=== PATIENT | male | born 1995 | race Caucasian/White ===

== ENCOUNTER 2016-11-05 01:46 | Emergency (ER) | payer BC ==
[~2016-11-05] VITALS: Ht 177.8 cm; Wt 84.9 kg
[2016-11-05 01:50] VITALS: TEMP 36.7; Ht 177.8 cm; Wt 84.9 kg
[2016-11-05] MEDS ORDERED: SODIUM CHLORIDE 0.9% 1000ML 1,000 ML IV STA (02:32)
[2016-11-05] MEDS ORDERED: ACET-1175 PO (02:40)
[2016-11-05 03:54] LABS: BASO % 0.1 %; BASO ABS # 0.01 K/uL (0-0.2); COMPLETE YES; EOS % 7.6 %; HEMATOCRIT 46.7 % (42-52); IG% 0.1 %; LYMPH % 31.1 %; LYMPH ABS # 2.29 K/uL (1.2-3.4); MEAN CELL VOLUME 87.3 fL (80-100); MEAN CORPUSCULAR HEMOGLOBIN 31.4 pg (25-34); MEAN PLATELET VOLUME 9.9 fL (7.4-10.4); MONO % 9.1 %; PLATELET COUNT 208 K/uL (130-400); RED BLOOD COUNT 5.35 M/uL (4.7-6.1); WHITE BLOOD COUNT 7.37 K/uL (4.8-10.8)
[2016-11-05 03:55] LABS: URINE APPEARANCE CLEAR (CLEAR); URINE BILIRUBIN NEG (NEG); URINE COLOR YELLOW; URINE NITRITE NEG (NEG); URINE SPECIFIC GRAVITY 1.023 (1.000-1.030); UROBILINOGEN NEG (NEG); ZZUR CULT IF INDIC CLEAN CATCH NO
[2016-11-05 03:59] LABS: MANUAL MICROSCOPIC REQUIRED? NO; REVIEW REQ? NO
[2016-11-05 04:07] LABS: INR 1.1 (0.9-1.1); PROTHROMBIN TIME (PATIENT) 11.8 SECONDS (9.0-12.0)
[2016-11-05 04:13] LABS: BUN/CREATININE RATIO 11.5 (10-20); CALCIUM 9.4 mg/dl (8.5-10.1); CREATININE 1.2 mg/dl (0.60-1.40); MAGNESIUM 2.1 mg/dl (1.8-2.4); POTASSIUM 3.7 mmol/L (3.5-5.1)
[2016-11-05 04:24] LABS: ALB/GLOB RATIO 1.2 (0.9-2); THYROID STIMULATING HORMONE 1.88 uIu/ml (0.300-4.500)
[2016-11-05 04:26] LABS: BENZODIAZEPINE, URINE NEG (NEG); COCAINE,URINE NEG (NEG); PHENCYCLIDINE, URINE NEG (NEG)
[2016-11-05] MEDS ORDERED: AMOXICIL/CLAVU 875MG HOME PACK PO ONE (05:45)
[2016-11-05] MEDS ORDERED: AMOX875T PO (05:46)
[2016-11-05] MEDS ORDERED: PANT40TA PO (05:46)
[2016-11-05] MEDS ORDERED: PRED50TA PO (05:46)
--- NOTE | 2016-11-05 05:47 | EMERGENCY ROOM VISIT NOTE ---
History First contact with patient: 02:08 Chief Complaint: NAUSEA Stated Complaint: HEADACHE / STOMACH Nursing Triage Summary: c/o intermittent nausea, abdominal pain, loss of appetite & depression. Sx started 4-5 weeks ago and was seen by PCP without any findings. At that time the patient stopped taking a testosterone enhancing supplement that was possibly the cause. No change in sx since then. History of Present Illness The patient is a 21 year old male who presents to the Emergency Department by private vehicle for evaluation of his ongoing symptoms of nausea as well as occasional abdominal pain. Patient reports that upon returning home from [place], he has experienced "mild depression" with occasional fluctuations in a motion as well as crying and worrying over small things. He reports he has had occasional nausea as well as vomiting approximately every other day. He denies any recent falls or head trauma. Today he complains of a headache. The patient has been using omeprazole the past 3 weeks with minimal relief of symptoms. He does admit to heavy drinking over spring, but denies any other drug or substance use. He did notice black stools 2 days ago. Mother does report to provide the patient Pepto-Bismol for his symptoms. He denies any yuri blood in his stool. He has not been evaluated by his primary care provider to this point. He admits to using heavy doses of ibuprofen on an empty stomach while on spring as well. He rates his current discomfort as a 2/10. She denies any fevers, chills, recent illness, blurry vision, no vision, slurred speech, facial droop, unilateral weakness/numbness, chest pain, or significant abdominal discomfort. Patient also reports using a testosterone supplement for approximately 6 weeks which has been stopped over the last few weeks as well. Review of Systems A complete 10-point Review of Systems was discussed with the patient, with pertinent positives and negatives listed in the History of Present Illness. All remaining Review of Systems questions can be considered negative unless otherwise specified. Social History Smoking Status: Never Smoker Smokeless Tobacco Use: No Alcohol Use: occasionally Drug Use: none Marital Status: single Housing Status: lives with family Occupation Status: student Current/Historical Medications Scheduled Amoxicillin & Pot Clavulanate (Augmentin 875-125 mg), 875 MG PO BID Pantoprazole (Protonix), 40 MG PO DAILY Prednisone (Prednisone), 50 MG PO DAILY Scheduled PRN Acetaminophen (Tylenol), 650 MG PO Q4 PRN for Pain Allergies Coded Allergies: No Known Allergies (Unverified , 11/05/16) Physical Exam Vital Signs Date Time Temp Pulse Resp B/P Pulse Ox O2 Delivery O2 Flow Rate FiO2 11/05/16 06:00 55 18 134/63 97 Room Air 11/05/16 04:29 48 18 123/68 98 Room Air 11/05/16 01:50 36.7 57 20 122/77 97 Room Air Pain Rating (0-10): 2 Physical Exam VITAL SIGNS - Vital signs and nursing notes were reviewed. GENERAL - 21-year-old male appearing his stated age who is in no acute distress. Communicates well with provider and answers questions appropriately. SKIN - Without rashes. HEAD - NC/AT. EYES - PERRL with EOMI bilaterally. Sclera anicteric. Palpebral conjunctiva pink and moist with no injection noted. EARS - No deformities of external structures noted on gross examination bilaterally. No pain elicited with palpation of the tragus bilaterally. External auditory canals without discharge or otorrhea. Tympanic membranes pearly prakash without retraction or bulging. No fluid or purulent material visualized behind the TM. Handle of malleus, umbo, cone of light, pars tensa/ flaccid all easily visualized. NOSE - Midline and without cyanosis. No epistaxis or purulent drainage noted. Septum midline without deviation or septal hematoma noted. MOUTH/OROPHARYNX - Without perioral cyanosis. Buccal mucosa pink and moist and without leukoplakia. Tongue midline with equal elevation of palate bilaterally. No tonsillar hypertrophy, erythema, or exudates noted. Good dentition noted. NECK - Neck with FROM. Supple to palpation. No lymphadenopathy noted. No nuchal rigidity. LUNGS - Chest wall symmetric without accessory muscle use, intercostals retractions, or central cyanosis. Normal vesicular breath sounds CTA B/L. No wheezes, rales, or rhonchi appreciated. CARDIAC - RRR with S1/S2. No murmur, rubs, or gallops appreciated. ABDOMEN - Abdominal contour flat without pulsations or visible masses. BS normoactive all four quadrants. No tenderness, palpable masses, hepatosplenomegaly, or ascites noted. RECTAL - No rectal fissures. No skin tags appreciated. No active bleeding. A sterile, water-soluble lubricant was applied to the examiner's finger prior to internal exam. No rectal vault tenderness. No rectal masses. No fecal impaction. Stool Guaiac Test: Hemoccult NEGATIVE. EXTREMITIES - No clubbing or peripheral cyanosis. No pretibial edema present. +3 /5 radial, posterior tibial, and dorsalis pedis pulses palpated throughout. +5/ 5 strength noted in UE/LE bilaterally. NEUROLOGIC - Cranial nerves II through XII grossly intact. Sensory intact to light touch throughout. Patellar reflexes +2/4. PSYCH - A&Ox3 and cooperates fully with examiner. Pt is very pleasant and interacts well with examiner. Medical Decision & Procedures ER Provider Diagnostic Interpretation: Obstruction series was obtained and reviewed by myself. No acute obstructions or other findings noted per my interpretation. Radiologist's impression unavailable at the time of dictation. Radiological imaging and reports were reviewed by myself. Radiologist's Interpretation per [facility] as follows: CT HEAD: No acute intracranial hemorrhage. No evidence of intracranial mass, extra-axial fluid collection, or hydrocephalus. Complete opacification right frontal sinus, partial opacification bilateral ethmoid air cells, and moderate mucosal thickening of right sphenoid sinus. Laboratory Results 11/05/16 03:30 Red Blood Count 5.35, Mean Corpuscular Volume 87.3, Mean Corpuscular Hemoglobin 31.4, Mean Corpuscular Hemoglobin Concent 36.0, Mean Platelet Volume 9.9, Neutrophils (%) (Auto) 52.0, Lymphocytes (%) (Auto) 31.1, Monocytes (%) (Auto) 9.1, Eosinophils (%) (Auto) 7.6, Basophils (%) (Auto) 0.1, Neutrophils # (Auto) 3.83, Lymphocytes # (Auto) 2.29, Monocytes # (Auto) 0.67, Eosinophils # (Auto) 0.56, Basophils # (Auto) 0.01 11/05/16 03:30 Test 11/05/16 03:30 11/05/16 03:45 White Blood Count 7.37 K/uL (4.8-10.8) Red Blood Count 5.35 M/uL (4.7-6.1) Hemoglobin 16.8 g/dL (14.0-18.0) Hematocrit 46.7 % (42-52) Mean Corpuscular Volume 87.3 fL (80-100) Mean Corpuscular Hemoglobin 31.4 pg (25-34) Mean Corpuscular Hemoglobin Concent 36.0 g/dl (32-36) Platelet Count 208 K/uL (130-400) Mean Platelet Volume 9.9 fL (7.4-10.4) Neutrophils (%) (Auto) 52.0 % Lymphocytes (%) (Auto) 31.1 % Monocytes (%) (Auto) 9.1 % Eosinophils (%) (Auto) 7.6 % Basophils (%) (Auto) 0.1 % Neutrophils # (Auto) 3.83 K/uL (1.4-6.5) Lymphocytes # (Auto) 2.29 K/uL (1.2-3.4) Monocytes # (Auto) 0.67 K/uL (0.11-0.59) Eosinophils # (Auto) 0.56 K/uL (0-0.5) Basophils # (Auto) 0.01 K/uL (0-0.2) RDW Standard Deviation 40.1 fL (36.4-46.3) RDW Coefficient of Variation 12.5 % (11.5-14.5) Immature Granulocyte % (Auto) 0.1 % Immature Granulocyte # (Auto) 0.01 K/uL (0.00-0.02) Prothrombin Time 11.8 SECONDS (9.0-12.0) Prothromb Time International Ratio 1.1 (0.9-1.1) Activated Partial Thromboplast Time 25.5 SECONDS (21.0-31.0) Partial Thromboplastin Ratio 1.0 Anion Gap 6.0 mmol/L (3-11) Est Creatinine Clear Calc Drug Dose 100.5 ml/min Estimated GFR () 99.6 Estimated GFR (Non- 85.9 BUN/Creatinine Ratio 11.5 (10-20) Calcium Level 9.4 mg/dl (8.5-10.1) Magnesium Level 2.1 mg/dl (1.8-2.4) Total Bilirubin 0.7 mg/dl (0.2-1) Aspartate Amino Transf (AST/SGOT) 13 U/L (15-37) Alanine Aminotransferase (ALT/SGPT) 28 U/L (12-78) Alkaline Phosphatase 85 U/L (45-117) Total Protein 7.9 gm/dl (6.4-8.2) Albumin 4.3 gm/dl (3.4-5.0) Globulin 3.6 gm/dl (2.5-4.0) Albumin/Globulin Ratio 1.2 (0.9-2) Lipase 124 U/L (73-393) Thyroid Stimulating Hormone (TSH) 1.880 uIu/ml (0.300-4.500) Urine Color YELLOW Urine Appearance CLEAR (CLEAR) Urine pH 5.0 (4.5-7.5) Urine Specific Cory 1.023 (1.000-1.030) Urine Protein NEG (NEG) Urine Glucose (UA) NEG (NEG) Urine Ketones NEG (NEG) Urine Occult Blood NEG (NEG) Urine Nitrite NEG (NEG) Urine Bilirubin NEG (NEG) Urine Urobilinogen NEG (NEG) Urine Leukocyte Esterase NEG (NEG) Urine Opiates Screen NEG (NEG) Urine Methadone, Qualitative NEG (NEG) Urine Barbiturates NEG (NEG) Urine Phencyclidine (PCP) Level NEG (NEG) Ur Amphetamine/Methamphetamine NEG (NEG) MDMA (Ecstasy) Screen NEG (NEG) Urine Benzodiazepines Screen NEG (NEG) Urine Cocaine Metabolite NEG (NEG) Urine Marijuana (THC) NEG (NEG) Medications Administered Medications (Trade) Dose Ordered Sig/Charla Route Start Time Stop Time Status Last Admin Dose Admin Sodium Chloride (Nss 1000ml) 1,000 ml @ 999 mls/hr Q1H1M STAT IV 11/05/16 02:32 11/05/16 03:32 DC 11/05/16 04:23 999 MLS/HR Amoxicillin/ Clavulanate Potassium (Augmentin 875MG Home Pack) 1 homepack UD ONCE PO 11/05/16 05:45 11/05/16 05:46 DC 11/05/16 06:01 1 HOMEPACK Prednisone (PredniSONE TAB) 60 mg NOW STAT PO 11/05/16 05:40 11/05/16 05:41 DC 11/05/16 06:01 60 MG ED Course Patient was seen and evaluated by myself. Labs were drawn, saline lock in place. The patient was hydrated with a 1000 mL normal saline bolus. He declines anything for pain. CT the head and obstruction series were obtained. Laboratory results demonstrate no acute leukocytosis, worrisome anemia, or bandemia. The patient has no significant electrolyte abnormalities. Drug screen was negative. CT the head is unremarkable. Obstruction series was unremarkable. Stool was Hemoccult negative. Case was reviewed with my attending physician who agrees the diagnostic approach and treatment plan. Laboratory results and imaging studies were reviewed with the patient and family who acknowledges understanding. The patient was placed on Augmentin as well as prednisone for his concern for sinus disease. He is a symptomatic at this point, however. Patient will follow-up with his primary care provider later this week for recheck. He will return to the emergency department in the setting of any changing or worsening symptoms. Patient discharged home afebrile and in good condition. Medical Decision Given the patient's presentation and stated complaints, I did elect to perform the above-mentioned workup. The patient presents today with complaints of emotional lability as well as a headache and ongoing symptoms of nausea. There was concern for black stools a few days ago. Stools Hemoccult negative and i suspect this is likely related to Pepto-Bismol use. Neurologically, the patient 's exam is completely unremarkable. He has no focal neurological deficits. CT the head was unremarkable except for some sinus disease issues. He has no meningeal findings. He has no fever. CT demonstrates no masses or lesions to the brain which would result the patient's ongoing symptoms. I suspect the patient's emotional lability and ongoing symptoms could be related to his recent use of supplemental testosterone hormone with recent discontinuation of this. His workup is essentially unremarkable from an emergency standpoint this point. He was placed on Augmentin as well as prednisone for his sinusitis disease. He'll follow up closely with his primary care provider this week in follow-up. He will return for changing/worsening symptoms. Patient discharged home afebrile and in good condition. In the evaluation and treatment of this patient, the following differential diagnoses were considered: Migraine Headache, Intracranial Hemorrhage, Subdural Hematoma, Subarachnoid Hemorrhage, Cerebral Aneurysm, Temporal/Giant Cell Arteritis, Tension Headache, Meningitis, Encephalitis, or Hydrocephalus. Impression Primary Impression: Nausea & vomiting Additional Impressions: Emotional lability Headache Sinusitis Departure Information Dispostion Home / Self-Care Condition GOOD Prescriptions Amoxicillin & Pot Clavulanate (Augmentin 875-125 mg) 1 Tab Tab 875 MG PO BID for 14 Days, #28 TAB Prov: Frankie Urbina, PAHuiC 11/05/16 Pantoprazole (Protonix) 40 Mg Tab 40 MG PO DAILY for 30 Days, #30 TAB Prov: Frankie Urbina PA-C 11/05/16 Prednisone (Prednisone) 50 Mg Tab 50 MG PO DAILY for 4 Days, #4 TAB Prov: Frankie Urbina PA-C 11/05/16 Referrals Kimmie Guzman M.D. (PCP) Patient Instructions My [facility] Additional Instructions You've been seen in the emergency department today for your ongoing nausea and vomiting as well as changes in a motion and sinusitis. You were prescribed Augmentin to be taken as prescribed. This is an antibiotic. All antibiotics have the potential to cause diarrhea. Stop this medication and contact a medical provider if you were to develop any significant adverse side effects including: wheezing, shortness of breath, passing out, vomiting, or a diffuse rash. Always take antibiotics as directed and COMPLETE the ENTIRE course regardless of the improvement of your symptoms. Please use the Protonix as prescribed. You have been prescribed Prednisone 50 mg to be taken orally once a day for the next 4 days. This is an anti-inflammatory medicine to be used to help minimize your symptoms. You should take the COMPLETE course of the medication. Please follow-up with your primary care provider this week from today's visit. Return for any changing or worsening symptoms. Problem Qualifiers Primary Impression: Nausea & vomiting Vomiting type: unspecified Vomiting Intractability: non-intractable Qualified Codes: R11.2 - Nausea with vomiting, unspecified Additional Impressions: Headache Headache type: unspecified Headache chronicity pattern: unspecified pattern Intractability: not intractable Qualified Codes: R51 - Headache Sinusitis Sinusitis location: frontal Chronicity: acute Recurrence: not specified as recurrent Qualified Codes: J01.10 - Acute frontal sinusitis, unspecified
[2016-11-05 06:00] VITALS: BP 134/63; PULSE 55; O2SAT 97
--- NOTE | 2016-11-05 08:17 | DIAGNOSTIC IMAGING REPORT ---
ABDOMEN 2VIEW W/PA CHEST RTN CLINICAL HISTORY: Generalized abdominal pain COMPARISON STUDY: No previous studies for comparison. FINDINGS: The erect chest reveals no evidence of free air. There is no evidence of focal pulmonary consolidation.] Erect and supine views of the abdomen reveal no abnormally dilated loops of large or small bowel. There are no transition zone to indicate bowel obstruction. There is scattered stool present within the colon. There is a mild thoracic scoliosis. IMPRESSION: No evidence of bowel obstruction. No evidence of free air. Electronically signed by: Jayjay Patel M.D. 11/05/2016 8:16 AM Dictated Date/Time: 11/05/2016 8:15 AM
--- NOTE | 2016-11-05 08:19 | DIAGNOSTIC IMAGING REPORT ---
CT HEAD WITHOUT CONTRAST (CT) CLINICAL HISTORY: Severe headache, nausea, vomiting. COMPARISON STUDY: No previous studies for comparison. TECHNIQUE: Axial CT of the brain is performed from the vertex to the skull base. IV contrast was not administered for this examination. CT DOSE: 614.27 mGy.cm FINDINGS: No intra or extra-axial mass lesions are visualized. There is no CT evidence of acute cortical infarction. There is no evidence of midline shift. There is no acute hemorrhage. No calvarial fractures are visualized. There is no evidence of pathologic ventricular dilatation. There is mild mucosal thickening within the visualized portions of the maxillary sinuses. There is mucosal thickening within the ethmoid and sphenoid sinuses. There is complete opacification the right frontal sinus. IMPRESSION: Pansinus disease. Otherwise negative noncontrast head CT. Electronically signed by: Jayjay Patel M.D. 11/05/2016 8:17 AM Dictated Date/Time: 11/05/2016 8:16 AM
== END 2016-11-05 06:05 | disposition home or self-care (01) ==
LOC: C.EDB 01:47
DX: R11.2 Nausea with vomiting, unspecified (principal); R45.86 Emotional lability; R51 Headache; J01.10 Acute frontal sinusitis, unspecified